=== PATIENT | male | born 1970 | race African-American/Black ===

== ENCOUNTER 2016-08-16 19:28 | Emergency (ER) | payer OTHER ==
[~2016-08-16] VITALS: Ht 165.1 cm; Wt 72.6 kg
[~2016-08-16 19:28] MED LIST: AMOX-426 PO; DIVA500T7 PO; PRO20 PO; RISP2TAB5 PO; TRAZ-123 PO
[2016-08-16 19:56] VITALS: BP 125/83; PULSE 121; RESP 17; TEMP 98; O2SAT 96
[2016-08-16] MEDS ORDERED: LIDOCAINE VISCOUS 2%, 15 ML UDC MM ONE (20:00)
[2016-08-16] MEDS ORDERED: KETOROLAC TROMETHAMINE 60 MG/2 ML VIAL IM ONE (20:00)
--- NOTE | 2016-08-16 20:00 | NUR ---
Patient to ER bed 04 to gown for evaluation. Side rails up.
--- NOTE | 2016-08-16 20:01 | NUR ---
RONNIE Crocker at bedside examining patient
--- NOTE | 2016-08-16 20:02 | NUR ---
Pt brought by self, A&Ox4, pt c/o 03/21 mouth pain , no active bleeding, skin pink and warm, VS WNL
[2016-08-16] MEDS ORDERED: FLUCONAZOLE 200 MG TABLET (DIFLUCAN) PO ONE (20:15)
[2016-08-16] MEDS ORDERED: FLUCONAZOLE 100 MG TABLET (DIFLUCAN) ONE (20:23)
[2016-08-16 20:34] VITALS: BP 125/83; PULSE 121; RESP 17; TEMP 98; O2SAT 96
--- NOTE | 2016-08-16 20:34 | NUR ---
Patient given written and verbal discharge instructions and verbalizes understanding. ER MD discussed with patient the results and treatment provided. Patient in stable condition. ID arm band removed. Rx of Fluconazole given. Patient educated on pain management and to follow up with PMD. Pain Scale 0/10 . Opportunity for questions provided and answered.
== END 2016-08-16 20:34 | disposition home or self-care (01) ==
LOC: SED 19:28
DX: B37.0 Candidal stomatitis (principal); F17.210 Nicotine dependence, cigarettes, uncomplicated; F15.20 Other stimulant dependence, uncomplicated; F20.9 Schizophrenia, unspecified; Z71.6 Tobacco abuse counseling
CPT/HCPCS: 96372; 99283; J1885; J2001; J7042

== ENCOUNTER 2016-09-16 10:22 | Emergency (ER) | payer OTHER ==
[~2016-09-16] VITALS: Ht 165.1 cm; Wt 77.1 kg
[2016-09-16 10:22] VITALS: BP 156/118; PULSE 115; RESP 16; TEMP 99.2; O2SAT 99
--- NOTE | 2016-09-16 10:22 | NUR ---
Patient to ER bed 7 to gown for evaluation. Side rails up. Report given to SERAFIN ODONNELL.
--- NOTE | 2016-09-16 10:23 | NUR ---
MD PEDERSEN AT BEDSIDE.
[2016-09-16] MEDS ORDERED: QUEtiapine FUMARATE 100 MG TABLET PO ONE (10:30)
[2016-09-16 10:57] LABS: BASOPHILS # (AUTO) 0.2 K/uL (0.0-0.2); BASOPHILS % (AUTO) 2.6 % (0.0-2.0); EOSINOPHILS % (AUTO) 0.2 % (0.0-4.0); HEMATOCRIT 47.5 % (36-54); HEMOGLOBIN 15.3 g/dL (14.0-18.0); LYMPHOCYTES # (AUTO) 1.6 K/uL (1.0-5.5); LYMPHOCYTES % (AUTO) 18.9 % (20.5-51.5); MEAN CORPUSCULAR HEMOGLOBIN 27 pg (27-31); MEAN CORPUSCULAR HGB CONC 32 % (32-36); MEAN CORPUSCULAR VOLUME 85 fL (79.0-98.0); MONOCYTES # (AUTO) 0.6 K/uL (0.0-1.0); MONOCYTES % (AUTO) 7.7 % (1.7-9.3); NEUTROPHILS # (AUTO) 5.9 K/uL (1.8-7.7); NEUTROPHILS % (AUTO) 70.6 % (40.0-70.0); PLATELET COUNT (AUTO) 266 K/uL (130-430); RED BLOOD CELL COUNT(AUTO) 5.61 MIL/uL (4.2-6.2); RED CELL DISTRIBUTION WIDTH 15.3 % (9.0-15.0); WHITE BLOOD COUNT (AUTO) 8.3 K/uL (4.8-10.8)
[2016-09-16 10:59] LABS: ANION GAP 8 (5-15); CALCIUM 9.3 mg/dL (8.4-11.0); CHLORIDE 99 mmol/L (98-107); GLUCOSE 147 mg/dL (70-99); POTASSIUM 3.5 mmol/L (3.5-5.1); SODIUM SERUM 136 mmol/L (136-145); UREA NITROGEN, BLOOD 17 mg/dL (8-21)
[2016-09-16 11:03] LABS: ALANINE AMINOTRANSFERASE 62 U/L (12-78); ALBUMIN 4.3 g/dL (3.4-4.8); ASPARTATE AMINOTRANSFERASE 34 U/L (10-37); SALICYLATE 2 mg/dL (3-30); TOTAL BILIRUBIN 0.8 mg/dL (0.0-1.0)
[2016-09-16 11:08] LABS: ALCOHOL, BLOOD < 3 mg/dL (<10); GFR AFRICAN AMERICAN 76 mL/min (>90)
[2016-09-16 11:09] LABS: ACETAMINOPHEN < 1 ug/mL (1-30)
[2016-09-16 11:18] LABS: INR 1.1 (0.80-1.20); PROTHROMBIN TIME 11.6 SECS (9.5-12.5)
[2016-09-16 11:32] LABS: BILIRUBIN,URINE NEGATIVE (NEGATIVE); CLARITY/URINE SL HAZY (CLEAR); COLOR,URINE YELLOW (YELLOW); GLUCOSE,URINE NEGATIVE (NEGATIVE); KETONES,URINE 1+ (NEGATIVE); LEUKOCYTE ESTERASE ,URINE NEGATIVE (NEGATIVE); NITRITE, URINE NEGATIVE (NEGATIVE); PROTEIN URINE NEGATIVE (NEGATIVE); UROBILINOGEN,URINE 0.2 (0.2-1.0)
[2016-09-16 11:34] LABS: BLOOD, URINE TRACE (NEGATIVE)
[2016-09-16 11:45] LABS: RBC,URINE 0-3 /HPF (0-3); WBC,URINE NONE SEEN /HPF (0-3)
[2016-09-16 11:46] LABS: BACTERIA,URINE RARE /HPF (None Seen)
--- NOTE | 2016-09-16 11:48 | NUR ---
PATIENT REASSESSED RESTING COMFORTABLY IN [facility], NO ACUTE DISTRESS, DENIES PAIN AND OR DISCOMFORT, NO COMPLAINTS AT THIS TIME, AWAITING RE-EVAL.
[2016-09-16 11:56] LABS: BARBITURATE, URINE NEGATIVE (NEG <=200)
[2016-09-16 11:57] LABS: BENZODIAZEPINE, URINE NEGATIVE (NEG <=150); CANNABINOID, URINE POSITIVE (NEG <=50); COCAINE, URINE NEGATIVE (NEG <=150); METHAMPHETAMINES SCREEN,URINE POSITIVE (NEG <=500); OPIATE, URINE NEGATIVE (NEG <=100); PHENCYCLIDINE SCREEN,URINE NEGATIVE (NEG <=25); UR TRICYCLIC ANTIDEPRESSANTS NEGATIVE (NEG <=300); URINE AMPHETAMINE POSITIVE (NEG <=500); URINE METHADONE NEGATIVE (NEG <=200); URINE OXYCODONE SCREEN NEGATIVE (NEG <=100); URINE PROPOXYPHENE SCREEN NEGATIVE (NEG <=300)
[2016-09-16 12:15] VITALS: BP 123/66; PULSE 90; RESP 16; O2SAT 98
--- NOTE | 2016-09-16 12:17 | NUR ---
Patient given written and verbal discharge instructions and verbalizes understanding. ER MD discussed with patient the results and treatment provided. Given copies of tests performed in ER. Patient in stable condition. ID arm band removed. IV catheter removed intact and dressing applied, no active bleeding. Patient educated on pain management and to follow up with PMD. Pain Scale . Opportunity for questions provided and answered.
== END 2016-09-16 12:15 | disposition home or self-care (01) ==
LOC: SED 10:22
DX: F20.9 Schizophrenia, unspecified (principal); F17.210 Nicotine dependence, cigarettes, uncomplicated; Z91.14 Patient's other noncompliance with medication regimen
CPT/HCPCS: 36415; 80053; 80307; 81000; 85025; 85610; 85730; 93005; 99285; G0480; G0481; G0482

== ENCOUNTER 2016-09-16 19:26 | Emergency (ER) | payer OTHER ==
[~2016-09-16] VITALS: Ht 167.6 cm; Wt 74.8 kg
[2016-09-16 19:36] VITALS: BP 142/92; PULSE 120; RESP 18; TEMP 97.2; O2SAT 100
--- NOTE | 2016-09-16 21:40 | NUR ---
Note undone in EDM - 09/16/16 at 2335 by [email or web address] Pt ambulatory, a/o x 4, c/o anxiety and schizophrenia who presented to the ER for evaluation of possible medication reaction after taking Seroquel earlier today as prescribed in the ER. Patient stated that as he has been waiting to be evaluated, his feeling of anxiety have resolved. Pt stated he also felt anxious this morning after he did not take his Seroquel 400 mg last night. Pt reported that he is hearing voices as he frequently does, denied any suicidal ideation or homicidal ideation. Denied visual hallucinations. Patient denied any headache, anxiety, chest pain, nausea, vomiting, or other symptoms. Pt with normal resp effort, V/S within normal.
--- NOTE | 2016-09-16 21:49 | NUR ---
ER RONNIE Crocker at bedside examining patient.
--- NOTE | 2016-09-16 23:00 | NUR ---
Note anaone in EDM - 09/17/16 at 0054 by [email or web address] Patient given written and verbal discharge instructions and verbalizes understanding. ER RONNIE Crocker discussed with patient the results and treatment provided. Patient in stable condition. ID arm band removed. No Rx given. Pain Scale 0/10. Opportunity for questions provided and answered.
[2016-09-16 23:38] VITALS: BP 140/90; PULSE 105; RESP 17; TEMP 97.8; O2SAT 100
--- NOTE | 2016-09-16 23:38 | NUR ---
Patient given written and verbal discharge instructions and verbalizes understanding. ER [employer] Katherine Crocker discussed with patient the results and treatment provided. Patient in stable condition. ID arm band removed. No Rx given. Pain Scale 0/10. Opportunity for questions provided and answered.
== END 2016-09-16 23:38 | disposition home or self-care (01) ==
LOC: SED 19:26
DX: T43.595A Adverse effect of other antipsychotics and neuroleptics, initial encounter (principal); F20.9 Schizophrenia, unspecified; F17.210 Nicotine dependence, cigarettes, uncomplicated; F41.9 Anxiety disorder, unspecified; R03.0 Elevated blood-pressure reading, without diagnosis of hypertension; F15.20 Other stimulant dependence, uncomplicated; Z91.14 Patient's other noncompliance with medication regimen
CPT/HCPCS: 93005; 99283